=== PATIENT | female | born 1950 | race Caucasian/White ===

== ENCOUNTER 2020-11-29 14:26 | Emergency (ER) | payer MEDICARE | END 2020-11-30 21:02 | LOC: ED 14:26 | DX: S91.001A Unspecified open wound, right ankle, initial encounter (principal); Z53.21 Procedure and treatment not carried out due to patient leaving prior to being seen by health care provider ==

== ENCOUNTER 2020-11-30 21:36 | Inpatient (IN) | payer MEDICARE ==
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
[2020-12-01] MEDS ORDERED: TETANUS,DIPH,PERTUSS(ACELL) VACCINE 0.5 ML SYRINGE IM ONE ×2 (01:38→05:30)
--- NOTE | 2020-12-01 02:24 | History and Physical Report ---
History of Present Illness Date of examination: 12/01/20 Date of admission: 12/01/2020 Chief complaint: Right leg wound History of present illness: 70-year-old female with known history of cerebral palsy hypertension presents to the emergency room today with right leg wound and cellulitis which has been ongoing for about a month. Patient was sent to the emergency room by car primary care physician Dr. Browne for possible IV antibiotics. Patient normally ambulates with a walker and she has had a leg ulcer over the past several months which has now healed. She has had occasional drainage from the wound. She denies any recent fall or trauma to the leg. She denies any fever or chills, denies any chest pain or shortness of breath. She has had progressive swelling of her lower extremities and has has occasional mild pain for which she uses Advil with relief. Patient moved from [place] about 3 years ago and lives with son and [id number]. She denies any sick contacts and no recent travel. Denies any contact with anyone with COVID-19. Patient is not vaccinated against COVID-19. Work-up in the emergency room today reveals a leukocytosis of 13.1 Doppler of the lower extremities reveals no DVT. X-ray of the right lower extremity reveals: 1. Marked irregularity at the tibiotalar joint and the ankle with degenerative change joint space narrowing. Flattening of the talar dome suggested. No displaced fracture however images are slightly suboptimal. No history of trauma given. 2. Diffuse soft tissue swelling and edema throughout the lower extremity and into the ankle could represent diffuse cellulitis. 3. Degenerative change of the right knee. Patient has been admitted with cellulitis/infected wound of the right lower extremity. Past History Past Medical History: hypertension, other (Cerebral palsy) Past Surgical History: hysterectomy, Other (Leg surgery, cornea transplant) Social history: no significant social history Family history: no significant family history Medications and Allergies Allergies Allergy/AdvReac Type Severity Reaction Status Date / Time No Known Allergies Allergy Verified 11/30/20 23:57 Review of Systems Constitutional: no fever, no chills Ears, nose, mouth and throat: no nasal congestion, no sore throat Cardiovascular: no chest pain, no palpitations Respiratory: no cough, no shortness of breath Gastrointestinal: no abdominal pain, no nausea, no vomiting, no diarrhea Genitourinary Female: no pelvic pain, no flank pain, no dysuria, no hematuria Musculoskeletal: no neck pain, no low back pain Integumentary: no rash, no pruritis Neurological: no headaches, no confusion Psychiatric: no anxiety, no depression Endocrine: no polydipsia, no polyuria, no nocturia Exam - Constitutional Vitals: Temp Pulse Resp BP Pulse Ox 98.9 F 72 140/101 96 11/30/20 23:56 11/30/20 23:55 11/30/20 23:55 11/30/20 23:55 General appearance: Present: no acute distress, well-nourished - EENT Eyes: Present: PERRL, EOM intact. Absent: scleral icterus ENT: hearing intact, clear oral mucosa, dentition normal - Neck Neck: Present: supple, normal ROM - Respiratory Respiratory effort: normal Respiratory: bilateral: CTA - Cardiovascular Rhythm: regular Heart Sounds: Present: S1 & S2. Absent: gallop, systolic murmur, diastolic murmur, rub, click - Extremities Extremities: no ischemia, pulses intact, pulses symmetrical, normal temperature, normal color, Full ROM Extremity abnormal: edema (3+ bilateral ankle edema), ulceration (4 x 4 centimeter open ulcer on the medial aspect of the right leg just around the right ankle. Minimal surrounding redness.), erythema (Right leg), deformity (Deformity of both feet bilaterally with external rotation of both feet.), tenderness (Minimal tenderness in the right leg) Peripheral Pulses: within normal limits - Abdominal General gastrointestinal: Present: soft, non-tender, non-distended, normal bowel sounds. Absent: mass - Integumentary Integumentary: Present: clear, warm, dry, normal turgor. Absent: rash - Musculoskeletal Musculoskeletal: strength equal bilaterally - Psychiatric Psychiatric: appropriate mood/affect, intact judgment & insight, memory intact, cooperative - Neurologic Neurologic: CNII-XII intact, no focal deficits, moves all extremities Results - Labs CBC & Chem 7: 12/01/20 02:52 12/01/20 02:52 Assessment and Plan - Patient Problems (1) Cellulitis of right leg Status: Acute Plan to address problem: Patient placed on empiric IV antibiotics. Patient also has an open wound on the right leg. Consult placed to wound care for evaluation and recommendations. (2) History of cerebral palsy Status: Acute Plan to address problem: Patient quite stable. She has feeds/leg deformities and ambulates with a walker. (3) DVT prophylaxis Status: Acute Plan to address problem: Patient placed on subcutaneous heparin. (4) Full code status Status: Acute Plan to address problem: Patient is a full code.
--- NOTE | 2020-12-01 02:52 | XRay Report ---
Right tibia and fibula INDICATION: Deformity FINDINGS: There is tricompartmental degenerative change within the knee. Diffuse soft tissue swelling is seen throughout the lower leg soft tissues. Advanced degenerative change of the tibiotalar joint with diffuse soft tissue swelling. Large osteophytes of the tibiotalar joint IMPRESSION: 1. Marked irregularity at the tibiotalar joint and the ankle with degenerative change joint space tonie rowing. Flattening of the talar dome suggested. No displaced fracture however images are slightly sub optimal. No history of trauma given. 2. Diffuse soft tissue swelling and edema throughout the lower extremity and into the ankle could rep resent diffuse cellulitis. 3. Degenerative change of the right knee. Signer Name: Ganesh Murillo MD Signed: 12/01/2020 2:48 AM Workstation Name: [id number]
[2020-12-01] MEDS ORDERED: ONDANSETRON 4 MG/2 ML INJ IV PRN (03:02)
[2020-12-01] MEDS ORDERED: MAGNESIUM HYDROXIDE (MOM) ORAL LIQD UDC PO PRN (03:02)
[2020-12-01] MEDS ORDERED: MORPHINE 4 MG/1 ML INJ IV PRN (03:02)
[2020-12-01] MEDS ORDERED: MORPHINE 2 MG/1 ML INJ IV PRN (03:02)
--- NOTE | 2020-12-01 03:24 | Vascular Lab Report ---
Bilateral lower extremity Doppler venous ultrasound INDICATION: Leg swelling FINDINGS: Bilateral common femoral veins, superficial femoral veins and popliteal veins have normal c ompressibility and phasic flow. IMPRESSION: No evidence for DVT in bilateral lower extremities. Signer Name: Ganesh Murillo MD Signed: 12/01/2020 3:19 AM Workstation Name: [id number]
[2020-12-01 03:38] LABS: Hemoglobin 18.6 gm/dl (10.1-14.3)
[2020-12-01 03:43] LABS: Alanine Aminotransferase 13 units/L (7-56); Albumin 3.8 g/dL (3.9-5); BUN/Creatinine Ratio 34; Blood Urea Nitrogen 17 mg/dL (7-17); Calcium 9.2 mg/dL (8.4-10.2); Hemolysis Index 9
[2020-12-01] MEDS ORDERED: VANCOMYCIN PHARMACY TO DOSE IV SCH (04:00)
[2020-12-01] MEDS ORDERED: PIPERACILLIN/TAZOBACTAM 3.375 3.375 GM/50 ML BAG IV SCH (04:00)
[2020-12-01] MEDS ORDERED: VANCOMYCIN/NS 1 GM/250 ML 1 GM/250 ML BAG IV NR (04:00)
[2020-12-01 04:25] LABS: Total Cells Counted 100
[2020-12-01 04:26] LABS: Anisocytosis 1+; Macrocytosis 1+; Schistocytes Few; Spherocytes Few
[2020-12-01] MEDS: HEPARIN 5,000 UNIT/1 ML VIAL SUB-Q SCH ×3 (07:32→22:38)
[2020-12-01] MEDS: AMPICILLIN/SULBACTA 1.5GM/50ML 1.5 GM/50 ML BAG IV SCH ×3 (10:10→18:16)
[2020-12-01] MEDS: NYSTATIN CREAM 15 GM TUBE TP SCH ×2 (10:14→22:39)
[2020-12-01] MEDS ORDERED: hydrALAZINE 20 MG/1 ML INJ IV PRN (15:00)
[2020-12-01] MEDS: hydrALAZINE 25 MG TAB PO SCH ×2 (15:07→22:37)
[2020-12-01] MEDS: amLODIPine 10 MG TAB PO SCH (15:07)
--- NOTE | 2020-12-01 15:16 | Event Note ---
Date: 12/01/20 Patient seen and examined Complains of right foot ulcer erythema swelling and pain Patient noted to have extensive swelling and erythema on right lower extremity Also noted pruritic rash on the medial surface of both thigh to the pelvic area Continue empiric antibiotics for now, await for culture, will consult ID will follow blood culture Further plan and management will be depending on clinical course -It took me about 28 minutes to reevaluate and reasses this patient, discussed with RN/CM, review medical documents, lab results, imaging, medication list and placing order.
--- NOTE | 2020-12-01 15:34 | XRay Report ---
RIGHT ANKLE 2 VIEW(S) INDICATION / CLINICAL INFORMATION: wound COMPARISON: Right leg radiographs from earlier in the day FINDINGS: BONES / JOINT(S): No acute fracture or subluxation. No significant arthritis. There is marked pes jordyn nus. SOFT TISSUES: Multiple fluid was noted throughout the lower leg. There is marked subcutaneous edema. ADDITIONAL FINDINGS: None. Signer Name: Pineda Hernandez DO Signed: 12/01/2020 3:30 PM Workstation Name: [id number]
[2020-12-02] MEDS: AMPICILLIN/SULBACTA 1.5GM/50ML 1.5 GM/50 ML BAG IV SCH ×4 (01:34→19:50)
[2020-12-02] MEDS: hydrALAZINE 25 MG TAB PO SCH ×3 (05:51→21:48)
[2020-12-02] MEDS: HEPARIN 5,000 UNIT/1 ML VIAL SUB-Q SCH ×3 (05:52→21:48)
[2020-12-02] MEDS: amLODIPine 10 MG TAB PO SCH (10:06)
[2020-12-02] MEDS: NYSTATIN CREAM 15 GM TUBE TP SCH ×2 (10:19→21:49)
--- NOTE | 2020-12-02 13:34 | Consultation ---
History of Present Illness - Reason for Consult Consult date: 12/02/20 Right foot cellulitis - History of Present Illness History of present illness: 70-year-old female with history of cerebral palsy, hypertension, hypertension, admitted on 11/29/2020 secondary to several weeks of right medial malleolus wound with worsening erythema and drainage. Patient developed wound several months ago has become non healing. Patient is also complaining of bilateral groin itching and skin lesions. Patient was sent from primary care physician office for consideration of IV antibiotics. On arrival, temperature 98.9, HR 72, O2 sat 96, BP 140/101. Initial WBC 13.1. Blood culture 12/01/2020 no growth today. Doppler lower extremity showed no DVT. X-ray of the right lower extremity sh ows irregularity ankle with DJD, diffuse soft tissue swelling and edema of the lower extremity. Review of Systems: positive in bold print General: fever, chills, malaise Cutaneous: annabella groin rash Head: headaches or injury Eyes: changes in vision, eye pain, double vision Ears: ear pain, ear discharge, ringing or hearing loss Nose: nose bleeding, stuffiness Mouth & throat: bleeding gums, horseness, no dental problems, or swollen glands Neck: no pain, node enlargement/lumps, tyroid enlargement or tenderness Respiratory: SOB, cough, FREEMAN, wheezing, sputum, hemoptysis, pleuritic chest pain Cardiovascular: chest pain, leg edema, cyanosis, FREEMAN, orthopnea Musculoskeletal: right medial malleolus wound Gastrointestinal: nausea, vomiting, hematemesis, diarrhea, constipation, melena, bright red blood in stools, fecal incontinence, jaundice Genitourinary/Reproductive: frequent urination, dysuria, hematuria, incontinence Neurogical: seizures, headaches, weakness, paresthesias, loss of speech or vision; memory loss, vertigo, tremors, numbness Psychiatric: stable mood; excessive anxiety, sadness or moodiness Past History Past Medical History: hypertension, other (Cerebral palsy) Past Surgical History: hysterectomy, Other (Leg surgery, cornea transplant) Social history: no significant social history Family history: no significant family history Medications and Allergies Allergies Allergy/AdvReac Type Severity Reaction Status Date / Time No Known Allergies Allergy Verified 12/01/20 07:31 Home Medications Medication Instructions Recorded Confirmed Last Taken Type Imodium 125 mg PO BID 12/01/20 12/01/20 Unknown History Active Meds: Active Medications Acetaminophen (Acetaminophen 325 Mg Tab) 650 mg PO Q4H PRN PRN Reason: Pain MILD(1-3)/Fever >100.5/NICE Amlodipine Besylate (Amlodipine 10 Mg Tab) 10 mg PO QDAY [facility] Last Admin: 12/02/20 10:06 Dose: 10 mg Documented by: Heparin Sodium (Porcine) (Heparin 5,000 Unit/1 Ml Vial) 5,000 unit SUB-Q Q8HR [facility] Last Admin: 12/02/20 05:52 Dose: 5,000 unit Documented by: Hydralazine HCl (Hydralazine 20 Mg/1 Ml Inj) 5 mg IV Q30MIN PRN PRN Reason: Hypertension Hydralazine HCl (Hydralazine 25 Mg Tab) 50 mg PO Q8HR [facility] Last Admin: 12/02/20 05:51 Dose: 50 mg Documented by: Sodium Chloride (Nacl 0.9% 1000 Ml) 1,000 mls @ 75 mls/hr IV DIRECT [facility] Ampicillin Sodium/Sulbactam Sodium (Unasyn/Ns 1.5 Gm/50 Ml) 1.5 gm in 50 mls @ 100 mls/hr IV Q6H [facility]; Protocol Last Admin: 12/02/20 06:00 Dose: 100 mls/hr Documented by: Vancomycin HCl 750 mg/ Sodium (Chloride) 265 mls @ 166.667 mls/hr IV Q24H [facility] Magnesium Hydroxide (Magnesium Hydroxide (Mom) Oral Liqd Udc) 30 ml PO Q4H PRN PRN Reason: Constipation Last Admin: 12/02/20 01:37 Dose: 30 ml Documented by: Morphine Sulfate (Morphine 2 Mg/1 Ml Inj) 2 mg IV Q4H PRN PRN Reason: Pain, Moderate (4-6) Morphine Sulfate (Morphine 4 Mg/1 Ml Inj) 4 mg IV Q4H PRN PRN Reason: Pain , Severe (7-10) Nystatin (Nystatin Cream 15 Gm Tube) 1 applic TP BID [facility] Last Admin: 12/02/20 10:19 Dose: 1 applic Documented by: Ondansetron HCl (Ondansetron 4 Mg/2 Ml Inj) 4 mg IV Q8H PRN PRN Reason: Nausea And Vomiting Sodium Chloride (Sodium Chloride 0.9% 10 Ml Flush Syringe) 10 ml IV BID ART Last Admin: 12/01/20 22:40 Dose: 10 ml Documented by: Sodium Chloride (Sodium Chloride 0.9% 10 Ml Flush Syringe) 10 ml IV PRN PRN PRN Reason: LINE FLUSH Physical Examination - Constitutional Vitals: Vital Signs Temp Pulse Resp BP Pulse Ox 98.4 F 88 18 174/112 95 12/02/20 11:18 12/02/20 11:18 12/02/20 11:18 12/02/20 11:18 12/02/20 11:18 Temperature -Last 24 Hours Temperature 98.4 F Temperature 98.6 F Temperature 99.2 F Temperature 98.2 F Results - Labs CBC & Chem 7: 12/01/20 02:52 12/01/20 02:52 Assessment and Plan Cultures: Blood cultures no growth today Assessment: 70-year-old female with history of cerebral palsy, hypertension, hypertension, admitted on 11/29/2020 secondary to several weeks of right medial malleolus wound with worsening erythema and drainage: #Leukocytosis: Likely secondary to right leg cellulitis. #Right inner malleolus chronic pain associated with cellulitis: X-ray with DJD soft tissue swelling and edema no obvious osteomyelitis. Ultrasound no DVT. #Bilateral groin rash: Possible Rylie intertrigo. Recommendations: -Wound care consult -Continue Unasyn and vancomycin for now -Check CRP -clotrimazole cream annabella groin bid x 7-10 days -If CRP is high consider MRI of the ankle -Anticipate discharge on oral antibiotics doxycycline 100 mg po bid and augmen tin 875 mg po bid total 7 days -Needs follow-up with wound care clinic Will follow. Karyn Poole MD Infectious Diseases Fur Blowing Machine Operator [facility] M [phone] O [phone]
[2020-12-02] MEDS: ACETAMINOPHEN 325 MG TAB PO PRN (16:40)
--- NOTE | 2020-12-02 16:46 | Progress Note ---
Assessment and Plan --Right lower extremity cellulitis --SIRS with leukocytosis and right lower leg cellulitis --Bilateral groin rash likely Rylie infection --History of cerebral palsy --Polycythemia Daily clinical course: 12/02/20: Blood cultures negative, continue empiric IV antibiotics. Wound care consulted and consult pending. Plan to DC home following wound care recommendation. Consult hematology for polycythemia Subjective Date of service: 12/02/20 Objective - Constitutional Vitals: Vital Signs - 12hr 12/02/20 12/02/20 12/02/20 05:51 07:53 11:18 Temperature 98.4 F Pulse Rate 78 88 Respiratory 18 Rate Blood Pressure 146/70 123/86 174/112 O2 Sat by Pulse 95 Oximetry 12/02/20 12/02/20 15:34 16:40 Temperature 98.3 F Pulse Rate 77 Respiratory 18 20 Rate Blood Pressure 115/85 O2 Sat by Pulse 97 Oximetry - Labs CBC & Chem 7: 12/03/20 09:53 12/01/20 02:52
[2020-12-02] MEDS: VANCOMYCIN 750 MG in SODIUM CHLORIDE 0.9% 250ML 250 ML IV SCH (17:48)
[2020-12-02] MEDS: SODIUM CHLORIDE 0.9% 1000 ML 1,000 ML IV SCH (23:57)
[2020-12-03] MEDS: AMPICILLIN/SULBACTA 1.5GM/50ML 1.5 GM/50 ML BAG IV SCH ×4 (00:02→20:34)
[2020-12-03] MEDS: HEPARIN 5,000 UNIT/1 ML VIAL SUB-Q SCH ×3 (05:24→21:59)
[2020-12-03] MEDS: hydrALAZINE 25 MG TAB PO SCH ×3 (05:24→21:59)
[2020-12-03] MEDS: ACETAMINOPHEN 325 MG TAB PO PRN (06:12)
[2020-12-03 07:29] LABS: Eosinophils % (Auto) TNR % (0.0-4.3); Hematocrit TNR % (30.3-42.9); Hemoglobin TNR gm/dl (10.1-14.3); Lymphocytes % (Auto) TNR % (13.4-35.0); Mean Corpuscular HGB Conc TNR % (30-34); Mean Corpuscular Volume TNR fl (79-97); Mean Platelet Volume TNR fl (6-12); Monocytes % (Auto) TNR % (0.0-7.3); Platelet Count TNR K/mm3 (140-440); Red Blood Count TNR M/mm3 (3.65-5.03); Red Cell Distribution Width TNR % (13.2-15.2)
[2020-12-03] MEDS: SODIUM CHLORIDE 0.9% 1000 ML 1,000 ML IV SCH ×2 (07:29→21:57)
[2020-12-03 07:30] LABS: Basophils # (Auto) TNR K/mm3 (0.0-0.1); Basophils % (Auto) TNR % (0.0-1.8); Eosinophils # (Auto) TNR K/mm3 (0.0-0.4); Lymphocytes # (Auto) TNR K/mm3 (1.2-5.4); Monocytes # (Auto) TNR K/mm3 (0.0-0.8)
[2020-12-03] MEDS: amLODIPine 10 MG TAB PO SCH (11:16)
[2020-12-03] MEDS: VANCOMYCIN 750 MG in SODIUM CHLORIDE 0.9% 250ML 250 ML IV SCH (11:16)
[2020-12-03] MEDS: NYSTATIN CREAM 15 GM TUBE TP SCH ×2 (11:17→22:00)
[2020-12-03 11:34] LABS: Mean Corpuscular HGB Conc 29 % (30-34)
[2020-12-03 11:35] LABS: Hemoglobin 17.7 gm/dl (10.1-14.3); Red Blood Count > 8.10 M/mm3 (3.65-5.03)
[2020-12-03 11:39] LABS: Hematocrit 61.7 % (30.3-42.9); Mean Corpuscular Volume 57 fl (79-97); Red Cell Distribution Width 24.4 % (13.2-15.2)
[2020-12-03 12:32] LABS: Platelet Count 252 K/mm3 (140-440)
--- NOTE | 2020-12-03 14:24 | Progress Note ---
Assessment and Plan --Right lower extremity cellulitis --SIRS with leukocytosis and right lower leg cellulitis --Bilateral groin rash likely Rylie infection --History of cerebral palsy --Polycythemia Daily clinical course: 12/02/20: Blood cultures negative, continue empiric IV antibiotics. Wound care consulted and consult pending. Plan to DC home following wound care recommendation. Consult hematology for polycythemia 12/03/20: Patient still has significant lower extremity swelling, continue IV antibiotic, erythema has improved. Waiting on wound care evaluation. White count has increased, will continue to follow for now. Wait for hematology re commendation. Follow PT recommendation. Subjective Date of service: 12/03/20 Objective - Constitutional Vitals: Vital Signs - 12hr 12/03/20 12/03/20 03:57 07:20 Temperature 98.1 F 97.9 F Pulse Rate 91 H 81 Respiratory 17 20 Rate Blood Pressure 129/81 Blood Pressure 121/64 [Right] O2 Sat by Pulse 95 94 Oximetry - Labs CBC & Chem 7: 12/03/20 09:53 12/01/20 02:52 Labs: Abnormal lab results 12/03/20 Range/Units 09:53 WBC 17.5 H (4.5-11.0) K/mm3 RBC > 8.10 H (3.65-5.03) M/mm3 Hgb 17.7 H (10.1-14.3) gm/dl Hct 61.7 H* (30.3-42.9) % MCV 57 L (79-97) fl MCH 16 L (28-32) pg MCHC 29 L (30-34) % RDW 24.4 H (13.2-15.2) %
--- NOTE | 2020-12-03 16:05 | Hem/Onc Consultation ---
History of Present Illness - Reason for Consult Consult date: 12/03/20 Possible polycythemia - History of Present Illness heme prelim note 70yo female with cerebral palsy and HTN Sent to ED by PCP, Dr. Browne, for IV antibiotics --right leg wound and cellulitis x 1 month--right ulcer on medial lower leg Ambulates with walker --drags legs in order to ambulate d/t abn leg anatomy Mild leg pain, subjective fever, and purulent drainage on right lower extremity --pain treated with advil Not vaccinated for covid Leg u/s negative for DVT IMP: Leukocytosis, possibly d/t leg infection High hematocrit could be polycythemia vera--h/h 17.1/61.7 --could be cause of inadequate wound healing or infection related REC/PLAN: Recommend daily lab draws to achieve some phlebotomy --therapeautic phlebotomy not available at [facility] Labs to include: epo and jak2 mutation, to r/o polcythemia vera Consider therapeautic phlebotomy would be recommended if she has proven polcythemia vera Therapeautic phlebotomy not urgent given the fact she has no ischemic event DATA REVIEWED BELOW Laboratory Last Values WBC 17.5 K/mm3 (4.5-11.0) H 12/03/20 09:53 RBC > 8.10 M/mm3 (3.65-5.03) H 12/03/20 09:53 Hgb 17.7 gm/dl (10.1-14.3) H 12/03/20 09:53 Hct 61.7 % (30.3-42.9) H* 12/03/20 09:53 MCV 57 fl (79-97) L 12/03/20 09:53 MCH 16 pg (28-32) L 12/03/20 09:53 MCHC 29 % (30-34) L 12/03/20 09:53 RDW 24.4 % (13.2-15.2) H 12/03/20 09:53 Plt Count 252 K/mm3 (140-440) 12/03/20 09:53 Pappenheimer Bodies Not Reportable 12/01/20 02:52 Sickle Cells Not Reportable 12/01/20 02:52 Target Cells Not Reportable 12/01/20 02:52 Tear Drop Cells Not Reportable 12/01/20 02:52 Ovalocytes Not Reportable 12/01/20 02:52 Helmet Cells Not Reportable 12/01/20 02:52 Herr-Larose Bodies Not Reportable 12/01/20 02:52 [place] Rings Not Reportable 12/01/20 02:52 [place] Cells Not Reportable 12/01/20 02:52 Bite Cells Not Reportable 12/01/20 02:52 Crenated Cell Not Reportable 12/01/20 02:52 Elliptocytes Not Reportable 12/01/20 02:52 Acanthocytes (Spur) Not Reportable 12/01/20 02:52 Rouleaux Not Reportable 12/01/20 02:52 Hemoglobin C Crystals Not Reportable 12/01/20 02:52 Schistocytes Few 12/01/20 02:52 Malaria parasites Not Reportable 12/01/20 02:52 [place]io Bodies Not Reportable 12/01/20 02:52 Hem Pathologist Commnt No 12/01/20 02:52 Past History Past Medical History: hypertension, other (Cerebral palsy) Past Surgical History: hysterectomy, Other (Leg surgery, cornea transplant) Social history: no significant social history Family history: no significant family history Medications and Allergies Allergies Allergy/AdvReac Type Severity Reaction Status Date / Time No Known Allergies Allergy Verified 12/01/20 07:31 Home Medications Medication Instructions Recorded Confirmed Last Taken Type Imodium 125 mg PO BID 12/01/20 12/01/20 Unknown History Active Meds: Active Medications Acetaminophen (Acetaminophen 325 Mg Tab) 650 mg PO Q4H PRN PRN Reason: Pain MILD(1-3)/Fever >100.5/NICE Last Admin: 12/03/20 06:12 Dose: 650 mg Documented by: Amlodipine Besylate (Amlodipine 10 Mg Tab) 10 mg PO QDAY [facility] Last Admin: 12/03/20 11:16 Dose: 10 mg Documented by: Heparin Sodium (Porcine) (Heparin 5,000 Unit/1 Ml Vial) 5,000 unit SUB-Q Q8HR [facility] Last Admin: 12/03/20 05:24 Dose: 5,000 unit Documented by: Hydralazine HCl (Hydralazine 20 Mg/1 Ml Inj) 5 mg IV Q30MIN PRN PRN Reason: Hypertension Hydralazine HCl (Hydralazine 25 Mg Tab) 50 mg PO Q8HR [facility] Last Admin: 12/03/20 05:24 Dose: 50 mg Documented by: Sodium Chloride (Nacl 0.9% 1000 Ml) 1,000 mls @ 75 mls/hr IV DIRECT [facility] Last Admin: 12/02/20 23:57 Dose: 75 mls/hr Documented by: Ampicillin Sodium/Sulbactam Sodium (Unasyn/Ns 1.5 Gm/50 Ml) 1.5 gm in 50 mls @ 100 mls/hr IV Q6H [facility]; Protocol Last Admin: 12/03/20 06:06 Dose: 100 mls/hr Documented by: Vancomycin HCl 750 mg/ Sodium (Chloride) 265 mls @ 166.667 mls/hr IV Q24H [facility] Last Admin: 12/03/20 11:16 Dose: 166.667 mls/hr Documented by: Magnesium Hydroxide (Magnesium Hydroxide (Mom) Oral Liqd Udc) 30 ml PO Q4H PRN PRN Reason: Constipation Last Admin: 12/02/20 01:37 Dose: 30 ml Documented by: Morphine Sulfate (Morphine 2 Mg/1 Ml Inj) 2 mg IV Q4H PRN PRN Reason: Pain, Moderate (4-6) Morphine Sulfate (Morphine 4 Mg/1 Ml Inj) 4 mg IV Q4H PRN PRN Reason: Pain , Severe (7-10) Nystatin (Nystatin Cream 15 Gm Tube) 1 applic TP BID [facility] Last Admin: 12/03/20 11:17 Dose: 1 applic Documented by: Ondansetron HCl (Ondansetron 4 Mg/2 Ml Inj) 4 mg IV Q8H PRN PRN Reason: Nausea And Vomiting Sodium Chloride (Sodium Chloride 0.9% 10 Ml Flush Syringe) 10 ml IV BID [facility] Last Admin: 12/02/20 21:49 Dose: 10 ml Documented by: Sodium Chloride (Sodium Chloride 0.9% 10 Ml Flush Syringe) 10 ml IV PRN PRN PRN Reason: LINE FLUSH Exam - Constitutional Vitals: Last Vital Signs Temp 98.9 F 12/03/20 11:00 Pulse 87 12/03/20 11:00 Resp 20 12/03/20 11:00 BP 134/81 12/03/20 11:00 Pulse Ox 97 12/03/20 11:00 Results - Labs lab Results: Laboratory Results - last 24 hr 12/02/20 12/03/20 12/03/20 04:18 04:18 09:53 WBC TNR 17.5 H RBC TNR > 8.10 H Hgb TNR 17.7 H Hct TNR 61.7 H* MCV TNR 57 L MCH TNR 16 L MCHC TNR 29 L RDW TNR 24.4 H Plt Count TNR 252 Lymph % (Auto) TNR [place] % (Auto) TNR Eos % (Auto) TNR Baso % (Auto) TNR Lymph # (Auto) TNR [place] # (Auto) TNR Eos # (Auto) TNR Baso # (Auto) TNR Add Manual Diff TNR Seg Neutrophils % TNR Seg Neutrophils # TNR C-Reactive Protein 0.80
--- NOTE | 2020-12-03 18:17 | Progress Note ---
Assessment and Plan Cultures: Blood cultures no growth today Assessment: 70-year-old female with history of cerebral palsy, hypertension, hypertension, admitted on 11/29/2020 secondary to several weeks of right medial malleolus wound with worsening erythema and drainage: #Leukocytosis: Likely secondary to right leg cellulitis. #Right inner malleolus chronic pain associated with cellulitis: X-ray with DJD soft tissue swelling and edema no obvious osteomyelitis. Ultrasound no DVT. CRP is normal. #Bilateral groin rash: Possible Rylie intertrigo. Recommendations: -Wound care consult -Continue Unasyn and vancomycin for now -clotrimazole cream annabella groin bid x 7-10 days -If rash is not better, dermatology referral -Anticipate discharge on oral antibiotics doxycycline 100 mg po bid and augmentin 875 mg po bid total 7 days -Needs follow-up with wound care clinic Will follow. Karyn Poole MD Infectious Diseases [employer] Examin[employer] [facility] ([facility]) M [phone] O [phone] Subjective Date of service: 12/03/20 Interval history: Patient feels okay except for itching in the groin area. Objective - Exam Narrative Exam: General appearance: Alert in NAD pleasant Eyes: anicteric sclerae, moist conjunctivae; no lid-lag; PERRLA HENT: Normocephalic, Atraumatic; normal external ears, nares open, oropharynx clear with moist mucous membranes and no oral thrush Neck: supple, tracheal midline, no JVD Lungs: CTA, with normal respiratory effort and no intercostal retractions CV: RRR no murmur Abdomen: Soft, non-tender; no masses or hepatosplenomegaly Extremities: Bilateral lower extremity deformity, ankle edema with inner malleolus ulcer, erythema Skin: Bilateral groin rash Psych: no agitated Neuro: alert and oriented x 3. Moving all extermities - Constitutional Vitals: Vital Signs Temp Pulse Resp BP Pulse Ox 97.9 F 88 18 97/64 95 12/03/20 17:00 12/03/20 17:00 12/03/20 17:00 12/03/20 17:00 12/03/20 17:00 Temperature -Last 24 Hours Temperature 97.9 F Temperature 98.9 F Temperature 97.9 F Temperature 98.1 F Temperature 98.3 F Temperature 98.5 F - Labs CBC & Chem 7: 12/03/20 09:53 12/01/20 02:52 Labs: Abnormal lab results 12/03/20 Range/Units 09:53 WBC 17.5 H (4.5-11.0) K/mm3 RBC > 8.10 H (3.65-5.03) M/mm3 Hgb 17.7 H (10.1-14.3) gm/dl Hct 61.7 H* (30.3-42.9) % MCV 57 L (79-97) fl MCH 16 L (28-32) pg MCHC 29 L (30-34) % RDW 24.4 H (13.2-15.2) %
[2020-12-04] MEDS: AMPICILLIN/SULBACTA 1.5GM/50ML 1.5 GM/50 ML BAG IV SCH ×3 (06:35→14:10)
[2020-12-04] MEDS: HEPARIN 5,000 UNIT/1 ML VIAL SUB-Q SCH ×2 (06:45→14:43)
[2020-12-04] MEDS: SODIUM CHLORIDE 0.9% 1000 ML 1,000 ML IV SCH (06:50)
[2020-12-04] MEDS: hydrALAZINE 25 MG TAB PO SCH ×2 (06:51→14:10)
[2020-12-04 08:45] LABS: Blood Urea Nitrogen 6 mg/dL (7-17); Calcium 8.8 mg/dL (8.4-10.2); Hemolysis Index 23
[2020-12-04 09:16] LABS: BUN/Creatinine Ratio 15
[2020-12-04] MEDS: amLODIPine 10 MG TAB PO SCH (10:03)
[2020-12-04] MEDS: NYSTATIN CREAM 15 GM TUBE TP SCH (10:04)
[2020-12-04] MEDS: VANCOMYCIN 750 MG in SODIUM CHLORIDE 0.9% 250ML 250 ML IV SCH (10:07)
[2020-12-04] MEDS ORDERED: LOPERAMIDE 2 MG CAP PO PRN (11:04)
[2020-12-04 12:07] LABS: Red Blood Count 7.01 M/mm3 (3.65-5.03)
[2020-12-04 12:08] LABS: Hematocrit 40.5 % (30.3-42.9); Hemoglobin 14.9 gm/dl (10.1-14.3); Mean Corpuscular HGB Conc 37 % (30-34); Mean Corpuscular Volume 58 fl (79-97); Platelet Count 475 K/mm3 (140-440); Red Cell Distribution Width 26.2 % (13.2-15.2)
[2020-12-04 12:09] LABS: Basophils # (Auto) 0.1 K/mm3 (0.0-0.1); Basophils % (Auto) 0.4 % (0.0-1.8); Eosinophils # (Auto) 0.5 K/mm3 (0.0-0.4); Eosinophils % (Auto) 3.3 % (0.0-4.3); Lymphocytes # (Auto) 0.9 K/mm3 (1.2-5.4); Lymphocytes % (Auto) 5.7 % (13.4-35.0); Monocytes # (Auto) 0.7 K/mm3 (0.0-0.8); Monocytes % (Auto) 4.2 % (0.0-7.3)
[2020-12-04 16:20] VITALS: BP 121/75
--- NOTE | 2020-12-04 17:21 | Discharge Summary ---
Providers - Providers Date of Admission: 12/02/20 15:28 Date of discharge: 12/04/20 Attending physician: CELESTE PARADA 12/01/20 03:05 Consult to Wound/ET Nurse [CONS] Routine Reason For Exam: wound eval- RIGHT LEG WOUND 12/01/20 15:14 Consult to Physician [CONS] Routine Comment: Consulting Provider: ZEHRA HOBBS Physician Instructions: Reason For Exam: right foot cellulitis 12/03/20 14:20 Consult to Physician [CONS] Routine Comment: Consulting Provider: JOSE PEÑA Physician Instructions: Reason For Exam: Possible polycythemia 12/03/20 14:25 Physical Therapy Evaluation and Treat [CONS] Routine Comment: Reason For Exam: Debility Primary care physician: STAINED GLASS GLAZIER HELPER Hospitalization Condition: Stable Disposition: HOME HEALTH CARE SERVICE Final Discharge Diagnosis (Prints w/discharge instructions): --Right lower extremity cellulitis. --SIRS with leukocytosis and right lower leg cellulitis. --Bilateral groin rash likely Ryile infection. --History of cerebral palsy. --Polycythemia Time spent for discharge: 34 minutes Exam - Constitutional Vitals: Temp Pulse Resp BP Pulse Ox 97.9 F 99 H 18 121/75 96 12/04/20 15:37 12/04/20 15:37 12/04/20 15:37 12/04/20 15:37 12/04/20 15:37 Plan Additional Instructions: Follow-up with hematology for possible polycythemia and outpatient phlebotomy. Follow-up pending labs. Continue antibiotic for 1 week. Follow-up at wound care clinic in 1 week. Follow up with: GLORIA HAYDEN MD [Primary Care Provider] - 7 Days CARRIE RUEDA MD [Staff Physician] - 7 Days Prescriptions: amLODIPine 10 mg PO QDAY #30 tablet Amoxicillin/Potassium Clav [Augmentin 875-125 Tablet] 1 each PO BID #14 tablet Doxycycline Hyclate [Doxycycline Hyclate TAB] 100 mg PO Q12HR #14 tab Nystatin Cream [Mycostatin Cream] 1 applic TP BID 7 Days
== END 2020-12-04 20:40 | disposition home health service (06) | DRG 603 ==
LOC: ED 21:36 → 4A 12-01 03:02 → OBSVTOIN 12-02 15:28
PROVIDERS: ADMIT Internal Medicine Geriatric Medicine; ATTEND Internal Medicine
DX: L03.115 Cellulitis of right lower limb (principal); R65.10 Systemic inflammatory response syndrome (SIRS) of non-infectious origin without acute organ dysfunction; L97.818 Non-pressure chronic ulcer of other part of right lower leg with other specified severity; I10 Essential (primary) hypertension; D72.829 Elevated white blood cell count, unspecified; G80.9 Cerebral palsy, unspecified; D75.1 Secondary polycythemia; B37.9 Candidiasis, unspecified; Z90.710 Acquired absence of both cervix and uterus; Z94.7 Corneal transplant status; Z79.899 Other long term (current) drug therapy; Z82.49 Family history of ischemic heart disease and other diseases of the circulatory system
CPT/HCPCS: 36415; 80048; 80053; 82962; 85007; 85025; 85027; 86140; 87040; 90715; 93970; G0378; J0295; J1644; J2270; J2543; J3370; J7030; J7050